=== PATIENT | female | born 1985 | race Two or more races ===

== ENCOUNTER 2017-08-03 17:20 | Emergency (ER) | payer OTHER ==
[~2017-08-03] VITALS: Ht 170.2 cm; Wt 104.3 kg
[~2017-08-03 17:20] MED LIST: CARAFATE SU1 G/10 ML PO; FOLIC ACID0.4 MG PO; KETO10TA2 PO; SEPTRA DS TABLE1 TAB PO; ULTRACET; ULTRACET PO
[2017-08-03] MEDS ORDERED: ORPHENADRINE C100 MG PO (21:21)
[2017-08-03] MEDS ORDERED: FLUCONAZOLE150 MG PO (21:21)
[2017-08-03] MEDS ORDERED: KETO10TA2 PO (21:21)
== END 2017-08-03 21:38 | disposition home or self-care (01) ==
LOC: ER 17:20
DX: N39.0 Urinary tract infection, site not specified (principal); M54.89 Other dorsalgia

== ENCOUNTER 2018-05-29 08:01 | Emergency (ER) | payer OTHER ==
[~2018-05-29] VITALS: Ht 170.2 cm; Wt 117.9 kg
[~2018-05-29 08:01] MED LIST changes: +FLUCONAZOLE150 MG PO; +ORPHENADRINE C100 MG PO
== END 2018-05-29 10:50 | disposition home or self-care (01) ==
LOC: ER 08:01
DX: M54.5 Low back pain (principal)